=== PATIENT | female | born 1940 | race Caucasian/White ===

== ENCOUNTER 2016-03-21 11:33 | Outpatient (CLI) | payer MEDICARE, OTHER ==
[2015-05-04 10:26] VITALS: BP 158/52
== END 2016-03-21 11:34 ==
LOC: LAB 11:33
PROVIDERS: ATTEND Internal Medicine Cardiovascular Disease
DX: Z51.81 Encounter for therapeutic drug level monitoring (principal); Z79.01 Long term (current) use of anticoagulants; I48.0 Paroxysmal atrial fibrillation
CPT/HCPCS: 36415; 85610

== ENCOUNTER 2016-04-04 09:37 | Outpatient (CLI) | payer MEDICARE, OTHER ==
[2015-05-04 10:26] VITALS: BP 158/52
== END 2016-04-04 09:47 ==
LOC: LAB 09:37
PROVIDERS: ATTEND Internal Medicine Cardiovascular Disease
DX: Z51.81 Encounter for therapeutic drug level monitoring (principal); Z79.01 Long term (current) use of anticoagulants; I48.0 Paroxysmal atrial fibrillation
CPT/HCPCS: 36415; 85610

== ENCOUNTER 2016-04-18 11:33 | Outpatient (CLI) | payer MEDICARE, OTHER ==
[2015-05-04 10:26] VITALS: BP 158/52
== END 2016-04-18 11:34 ==
LOC: LAB 11:33
PROVIDERS: ATTEND Internal Medicine Cardiovascular Disease
DX: I48.0 Paroxysmal atrial fibrillation (principal)
CPT/HCPCS: 36415; 85610

== ENCOUNTER 2016-05-02 12:45 | Outpatient (CLI) | payer MEDICARE, OTHER ==
[2015-05-04 10:26] VITALS: BP 158/52
== END 2016-05-02 12:46 ==
LOC: LAB 12:45
PROVIDERS: ATTEND Internal Medicine Cardiovascular Disease
DX: I48.0 Paroxysmal atrial fibrillation (principal)
CPT/HCPCS: 36415; 85610

== ENCOUNTER 2016-05-10 09:18 | Outpatient (CLI) | payer MEDICARE, OTHER ==
[2015-05-04 10:26] VITALS: BP 158/52
== END 2016-05-10 09:20 ==
LOC: LAB 09:18
PROVIDERS: ATTEND Internal Medicine Cardiovascular Disease
DX: Z51.81 Encounter for therapeutic drug level monitoring (principal); Z79.01 Long term (current) use of anticoagulants; I48.0 Paroxysmal atrial fibrillation
CPT/HCPCS: 36415; 85610

== ENCOUNTER 2016-05-24 14:10 | Outpatient (CLI) | payer MEDICARE, OTHER ==
[2015-05-04 10:26] VITALS: BP 158/52
== END 2016-05-24 14:11 ==
LOC: LAB 14:10
PROVIDERS: ATTEND Internal Medicine Cardiovascular Disease
DX: Z51.81 Encounter for therapeutic drug level monitoring (principal); Z79.01 Long term (current) use of anticoagulants; I48.0 Paroxysmal atrial fibrillation; R07.2 Precordial pain
CPT/HCPCS: 36415; 85610

== ENCOUNTER 2016-06-14 13:25 | Outpatient (CLI) | payer MEDICARE, OTHER ==
[2015-05-04 10:26] VITALS: BP 158/52
== END 2016-06-14 13:26 ==
LOC: LAB 13:25
PROVIDERS: ATTEND Internal Medicine Cardiovascular Disease
DX: Z51.81 Encounter for therapeutic drug level monitoring (principal); Z79.01 Long term (current) use of anticoagulants; I48.0 Paroxysmal atrial fibrillation
CPT/HCPCS: 36415; 85610

== ENCOUNTER 2016-07-03 11:50 | Outpatient (CLI) | payer MEDICARE, OTHER ==
[2015-05-04 10:26] VITALS: BP 158/52
== END 2016-07-03 11:52 ==
LOC: LAB 11:50
PROVIDERS: ATTEND Internal Medicine Cardiovascular Disease
DX: Z51.81 Encounter for therapeutic drug level monitoring (principal); Z79.01 Long term (current) use of anticoagulants; I48.0 Paroxysmal atrial fibrillation
CPT/HCPCS: 36415; 85610

== ENCOUNTER 2016-07-05 11:28 | Emergency (ER) | payer MEDICARE, OTHER ==
[2016-07-05] MEDS ORDERED: KETOROLAC TROMETHAMINE 60 MG/2 ML VIAL ONE (12:58)
[2016-07-05] MEDS ORDERED: FLUCONAZOLE 150 MG TABLET PO ONE (13:00)
[2016-07-05] MEDS: KETOROLAC TROMETHAMINE 60 MG/2 ML VIAL IM ONE (13:25)
[2016-07-05] MEDS: FLUCONAZOLE 150 MG TABLET PO SCH (13:25)
--- NOTE | 2016-07-05 14:04 | ED Physician Documentation ---
Fall - HISTORIAN Historian: patient - HPI Stated Complaint: groin pain r/t fall Chief Complaint: Fall Additional Information: fell yesterday, hurts to ambulate, spots of blood on underwear anteriorly Onset: just prior to arrival Where: home Context: tripped r: moderate Associated Symptoms:: no loss of consciousness Location of Pain/Injury: other (inguinal area) Injury to Right Extremity: none Injury to Left Extremity: none Front/Back of Body, Lg (Frio): 1 - pain Further Comments: no - ROS CONST: no problems MS/SKIN/LYMPH: other (inguinal/pelvic pain) EYES/ENT: none CVS/RESP: none GI/: denies: problems urinating, nausea, vomiting - PAST HX Past History: diabetes Type 2, other (htn) Immunizations: referred to PCP Allergies/Adverse Reactions: Allergies Allergy/AdvReac Type Severity Reaction Status Date / Time amoxicillin [Amoxicillin] Allergy Unknown Hives Verified 07/05/16 11:55 cephalexin monohydrate Allergy Unknown unknown Verified 07/05/16 11:55 [From Keflex] Home Medications: Ambulatory Orders Medication Instructions Recorded Allopurinol [Zyloprim] 300 mg PO DAILY 11/10/12 Cyclobenzaprine HCl [Flexeril] 10 mg PO DAILY 11/10/12 Gabapentin [Gabapentin] 300 mg PO DAILY 11/10/12 Glimepiride [Amaryl] 4 mg PO DAILY 11/10/12 Hydrochlorothiazide [Hydrodiuril] 25 mg PO DAILY 11/10/12 Hydrocodone/Acetaminophen 1 tab PO QID 11/10/12 [Hydrocodon-Acetaminophen 5-325] Lisinopril [Prinivil] 20 mg PO DAILY 11/10/12 Metformin HCl [GLUCOPHAGE] 1,000 mg PO DAILY 11/10/12 Metoprolol Tartrate [Lopressor] 50 mg PO DAILY 11/10/12 Omeprazole [Omeprazole] 20 mg PO DAILY 11/10/12 Simvastatin [Simvastatin] 40 mg PO DAILY 11/10/12 Meclizine HCl [Antivert] 12.5 mg PO QID #60 tablet 04/19/14 Acyclovir [Zovirax] 800 mg PO QID #56 tablet 05/04/15 - SOCIAL HX Smoking History: non-smoker Alcohol Use: none Drug Use: none - FAMILY HX Family History: no significant history - VITAL SIGNS Vital Signs: Vital Signs Temp Pulse Resp BP Pulse Ox 98.5 F 83 18 162/65 94 07/05/16 11:47 07/05/16 11:47 07/05/16 11:47 07/05/16 11:47 07/05/16 11:47 - REVIEWED ASSESSMENTS Nursing Assessment Reviewed: Yes Vitals Reviewed: Yes Progress - Results/Orders Results/Orders: ct abdomen/pelvis ordered - Progress Progress: pt. given diflucan 200 mg p.o. and toradol 60 mg im in er Critical Care Note - Critical Care Note Total Time (mins): 0 ED Results Lab/Radiology - Lab Results Lab Results: none ordered - Radiology Radiology Impressions: ct abdpmen/pelvis neg - Orders Orders: ED Orders Category Date Time Status CT ABD & PELVIS W/O CON Routine Exams 07/05/[address] ABD & PELVIS W/O CON Stat Exams 07/05/16 Ordered Fluconazole [Diflucan] Med 07/05/16 13:00 Ordered 200 mg PO DAILY Fluconazole [Diflucan] Med 07/05/16 13:00 Discontinued 300 mg PO .STK-MED ONE Ketorolac Tromethamine [Toradol] Med 07/05/16 12:58 Discontinued 60 mg .ROUTE .STK-MED ONE Ketorolac Tromethamine [Toradol] Med 07/05/16 12:45 Discontinued 60 mg IM NOW ONE Fall Physical Exam - Physical Exam General Appearance: alert, moderate distress Head: non-tender, no swelling, no obvious injury Neck: non-tender, painless ROM, trachea midline Eye: CLAIRE, EOMI, lids & conjunct. nml ENT: nml external inspection, no dental injury, no oral injury, airway nml Resp/CVS: chest non-tender, no ecchymosis, breath sounds nml, no resp. distress , heart sounds nml Abdomen: soft, no organomegaly, normal bowel sounds, no abdominal bruit, no distension, non-tender Neuro: oriented x3, CN's nml as tested, sensation nml, motor nml, mood/affect nml, automotive technology instructor nml, reflexes nml, automotive technology instructor symmetrical Skin: color nml, no rash Back: normal inspection, no CVA tenderness, no vertebral tenderness Extremities: atraumatic, pelvis stable, bony point-tenderness (hips), painful weight bearing (mild) Joint: joints nml, nml ROM, Nml gait/weight bearing. No: click/crepitus - [place]aud Coma Score Eyes Open: Spontaneous Speech: Oriented Motor: Obeys Commands Discharge Clincal Impression: Tinea corporis Referrals: Coby Watkins MD [Primary Care Provider] - 2 Days Home Medications: Ambulatory Orders Allopurinol [Zyloprim] 300 mg PO DAILY 11/10/12 Cyclobenzaprine HCl [Flexeril] 10 mg PO DAILY 11/10/12 Gabapentin [Gabapentin] 300 mg PO DAILY 11/10/12 Glimepiride [Amaryl] 4 mg PO DAILY 11/10/12 Hydrochlorothiazide [Hydrodiuril] 25 mg PO DAILY 11/10/12 Hydrocodone/Acetaminophen [Hydrocodon-Acetaminophen 5-325] 1 tab PO QID Lisinopril [Prinivil] 20 mg PO DAILY 11/10/12 Metformin HCl [GLUCOPHAGE] 1,000 mg PO DAILY 11/10/12 Metoprolol Tartrate [Lopressor] 50 mg PO DAILY 11/10/12 Omeprazole [Omeprazole] 20 mg PO DAILY 11/10/12 Simvastatin [Simvastatin] 40 mg PO DAILY 11/10/12 Meclizine HCl [Antivert] 12.5 mg PO QID #60 tablet 04/19/14 Acyclovir [Zovirax] 800 mg PO QID #56 tablet 05/04/15 Comments: Discharged with scripts for Nystatin powder and Diflucan Condition: Stable Disposition: 01 HOME, SELF-CARE Decision to Admit: NO Decision Time: 14:00
[2016-07-05 14:21] VITALS: BP 150/70
--- NOTE | 2016-07-05 23:44 | Diagnostic Imaging Report ---
MAIK ARENAS [facility] [address] [facility] [address] [place], [place]. [address] Report Submission Date: Jul 05, 2016 1:25:55 PM CDT Patient Study Name: JOEL MARTINEZ Date: Jul 05, 2016 12:58:03 PM CDT Modality Type: CT\SR Gender: F Description: CT ABD & PELVIS W/O CO : 38 Institution: [facility] Physician: MAIK ARENAS CT abdomen and pelvis without contrast Date of study: 05 July 2016 CLINICAL HISTORY: CT A/P W/O, ABD/PELVIC PAIN AFTER FALL (Hx) / ABD/PELVIC PAIN AFTER FALL (DICOM Hx) TECHNIQUE: 5 mm contiguous axial images of the abdomen and pelvis non contrast. FINDINGS: The lung bases are clear. There is no liver or spleen lesion. No adrenal or pancreas lesion is seen. Aortic iliac and mesenteric vascular calcification is present. The gallbladder has been removed. The kidneys are unremarkable. Lumbar spondylosis is present. There is diverticulosis of the colon. A hernia in the abdominal wall where the left side of the pelvis contains only fat. The bladder is unremarkable. No ascites or hemoperitoneum is seen. There is a fracture of L5 has been treated with vertebroplasty. The bladder and uterus appear normal for age The pelvic ring appears intact. No hip fractures identified. IMPRESSION: No acute abdomen and pelvis pathology Old fracture of L5 treated with vertebroplasty Cholecystectomy Multifocal vascular calcification Diverticulosis Left paramidline hernia overlying the pelvis Electronically signed on Jul 05, 2016 1:25:55 PM CDT by: Mario MISHRA
== END 2016-07-05 14:10 | disposition home or self-care (01) ==
LOC: ED 11:28
DX: B35.4 Tinea corporis (principal)
CPT/HCPCS: 74176; J1885; 96372; 99283

== ENCOUNTER 2016-07-17 12:34 | Outpatient (CLI) | payer MEDICARE, OTHER | END 2016-07-17 12:35 | LOC: LAB 12:34 | PROVIDERS: ATTEND Internal Medicine Cardiovascular Disease | DX: Z51.81 Encounter for therapeutic drug level monitoring (principal); Z79.01 Long term (current) use of anticoagulants; I48.0 Paroxysmal atrial fibrillation | CPT/HCPCS: 36415; 85610 ==

== ENCOUNTER 2016-07-18 11:00 | Outpatient (CLI) | payer MEDICARE, OTHER | END 2016-07-18 11:02 | LOC: LAB 11:00 | PROVIDERS: ATTEND Internal Medicine Cardiovascular Disease | DX: Z51.81 Encounter for therapeutic drug level monitoring (principal); Z79.01 Long term (current) use of anticoagulants; I48.0 Paroxysmal atrial fibrillation | CPT/HCPCS: 36415; 85610 ==

== ENCOUNTER 2016-07-27 10:34 | Outpatient (CLI) | payer MEDICARE, OTHER | END 2016-07-27 10:35 | LOC: LAB 10:34 | PROVIDERS: ATTEND Internal Medicine Cardiovascular Disease | DX: I48.0 Paroxysmal atrial fibrillation (principal) ==

== ENCOUNTER 2016-08-02 09:46 | Outpatient (CLI) | payer MEDICARE, OTHER | END 2016-08-02 09:47 | LOC: LAB 09:46 | PROVIDERS: ATTEND Internal Medicine Cardiovascular Disease | DX: I48.0 Paroxysmal atrial fibrillation (principal) | CPT/HCPCS: 36415; 85610 ==

== ENCOUNTER 2016-08-07 11:43 | Outpatient (CLI) | payer MEDICARE, OTHER | END 2016-08-07 11:44 | LOC: LAB 11:43 | PROVIDERS: ATTEND Internal Medicine Cardiovascular Disease | DX: I48.0 Paroxysmal atrial fibrillation (principal) | CPT/HCPCS: 36415; 85610 ==

== ENCOUNTER 2016-08-15 09:47 | Outpatient (CLI) | payer MEDICARE, OTHER | END 2016-08-15 09:50 | LOC: LAB 09:47 | PROVIDERS: ATTEND Internal Medicine Cardiovascular Disease | DX: I48.0 Paroxysmal atrial fibrillation (principal) ==

== ENCOUNTER 2016-08-28 10:54 | Outpatient (CLI) | payer MEDICARE, OTHER | END 2016-08-28 12:39 | LOC: LAB 10:54 | PROVIDERS: ATTEND Internal Medicine Cardiovascular Disease | DX: I48.0 Paroxysmal atrial fibrillation (principal) | CPT/HCPCS: 36415; 85610 ==

== ENCOUNTER 2016-09-12 09:23 | Outpatient (CLI) | payer MEDICARE, OTHER | END 2016-09-12 09:24 | LOC: LAB 09:23 | PROVIDERS: ATTEND Internal Medicine Cardiovascular Disease | DX: I48.0 Paroxysmal atrial fibrillation (principal) | CPT/HCPCS: 36415; 85610 ==

== ENCOUNTER 2016-09-19 10:22 | Outpatient (CLI) | payer MEDICARE, OTHER | END 2016-09-19 10:23 | LOC: LAB 10:22 | PROVIDERS: ATTEND Internal Medicine Cardiovascular Disease | DX: I48.0 Paroxysmal atrial fibrillation (principal) | CPT/HCPCS: 36415; 85610 ==

== ENCOUNTER 2016-10-02 10:20 | Outpatient (CLI) | payer MEDICARE, OTHER | END 2016-10-02 10:21 | LOC: LAB 10:20 | PROVIDERS: ATTEND Internal Medicine Cardiovascular Disease | DX: I48.0 Paroxysmal atrial fibrillation (principal) | CPT/HCPCS: 36415; 85610 ==

== ENCOUNTER 2016-10-09 10:44 | Outpatient (CLI) | payer MEDICARE, OTHER | END 2016-10-09 10:45 | LOC: LAB 10:44 | PROVIDERS: ATTEND Internal Medicine Cardiovascular Disease | DX: I48.0 Paroxysmal atrial fibrillation (principal) | CPT/HCPCS: 36415; 85610 ==

== ENCOUNTER 2016-10-18 10:26 | Outpatient (CLI) | payer MEDICARE, OTHER | END 2016-10-18 10:27 | LOC: LAB 10:26 | PROVIDERS: ATTEND Internal Medicine Cardiovascular Disease | DX: I48.0 Paroxysmal atrial fibrillation (principal) | CPT/HCPCS: 36415; 85610 ==

== ENCOUNTER 2016-10-30 15:47 | Outpatient (CLI) | payer MEDICARE, OTHER | END 2016-10-30 15:50 | LOC: LAB 15:47 | PROVIDERS: ATTEND Internal Medicine Cardiovascular Disease | DX: I48.0 Paroxysmal atrial fibrillation (principal) | CPT/HCPCS: 36415; 85610 ==

== ENCOUNTER 2016-11-02 08:55 | Outpatient (CLI) | payer MEDICARE, OTHER | END 2016-11-02 08:56 | LOC: LAB 08:55 | PROVIDERS: ATTEND Internal Medicine Cardiovascular Disease | DX: I48.0 Paroxysmal atrial fibrillation (principal) | CPT/HCPCS: 36415; 85610 ==

== ENCOUNTER 2016-11-06 10:48 | Outpatient (CLI) | payer MEDICARE, OTHER | END 2016-11-06 10:50 | LOC: LAB 10:48 | PROVIDERS: ATTEND Internal Medicine Cardiovascular Disease | DX: I48.0 Paroxysmal atrial fibrillation (principal) | CPT/HCPCS: 36415; 85610 ==

== ENCOUNTER 2016-11-09 09:35 | Outpatient (CLI) | payer MEDICARE, OTHER | END 2016-11-09 09:36 | LOC: LAB 09:35 | PROVIDERS: ATTEND Internal Medicine Cardiovascular Disease | DX: I48.0 Paroxysmal atrial fibrillation (principal) | CPT/HCPCS: 36415; 85610 ==

== ENCOUNTER 2016-11-13 10:34 | Outpatient (CLI) | payer MEDICARE, OTHER | END 2016-11-13 10:35 | LOC: LAB 10:34 | PROVIDERS: ATTEND Internal Medicine Cardiovascular Disease | DX: I48.0 Paroxysmal atrial fibrillation (principal) | CPT/HCPCS: 36415; 85610 ==

== ENCOUNTER 2016-11-20 11:27 | Outpatient (CLI) | payer MEDICARE, OTHER | END 2016-11-20 11:30 | LOC: LAB 11:27 | PROVIDERS: ATTEND Internal Medicine Cardiovascular Disease | DX: I48.0 Paroxysmal atrial fibrillation (principal) | CPT/HCPCS: 36415; 85610 ==

== ENCOUNTER 2016-11-27 10:31 | Outpatient (CLI) | payer MEDICARE, OTHER | END 2016-11-27 10:32 | LOC: LAB 10:31 | PROVIDERS: ATTEND Internal Medicine Cardiovascular Disease | DX: I48.0 Paroxysmal atrial fibrillation (principal) | CPT/HCPCS: 36415; 85610 ==

== ENCOUNTER 2016-12-11 10:22 | Outpatient (CLI) | payer MEDICARE, OTHER | END 2016-12-11 10:23 | LOC: LAB 10:22 | PROVIDERS: ATTEND Internal Medicine Cardiovascular Disease | DX: I48.0 Paroxysmal atrial fibrillation (principal) | CPT/HCPCS: 36415; 85610 ==

== ENCOUNTER 2016-12-21 10:37 | Outpatient (CLI) | payer MEDICARE, OTHER | END 2016-12-21 10:40 | LOC: LAB 10:37 | PROVIDERS: ATTEND Internal Medicine Cardiovascular Disease | DX: I48.0 Paroxysmal atrial fibrillation (principal) | CPT/HCPCS: 36415; 85610 ==

== ENCOUNTER 2016-12-25 10:32 | Outpatient (CLI) | payer MEDICARE, OTHER | END 2016-12-25 10:33 | LOC: LAB 10:32 | PROVIDERS: ATTEND Internal Medicine Cardiovascular Disease | DX: I48.0 Paroxysmal atrial fibrillation (principal) | CPT/HCPCS: 36415; 85610 ==

== ENCOUNTER 2017-01-02 11:43 | Outpatient (CLI) | payer MEDICARE, OTHER | END 2017-01-02 11:50 | LOC: LAB 11:43 | PROVIDERS: ATTEND Internal Medicine Cardiovascular Disease | DX: I48.0 Paroxysmal atrial fibrillation (principal) | CPT/HCPCS: 36415; 85610 ==

== ENCOUNTER 2017-01-09 13:32 | Outpatient (CLI) | payer MEDICARE, OTHER | END 2017-01-09 13:33 | LOC: LAB 13:32 | PROVIDERS: ATTEND Internal Medicine Cardiovascular Disease | DX: I48.0 Paroxysmal atrial fibrillation (principal) | CPT/HCPCS: 36415; 85610 ==

== ENCOUNTER 2017-01-23 10:26 | Outpatient (CLI) | payer MEDICARE, OTHER | END 2017-01-23 11:26 | LOC: LAB 10:26 | PROVIDERS: ATTEND Internal Medicine Cardiovascular Disease | DX: I48.0 Paroxysmal atrial fibrillation (principal) | CPT/HCPCS: 36415; 85610 ==

== ENCOUNTER 2017-02-04 10:12 | Outpatient (CLI) | payer MEDICARE, OTHER | END 2017-02-04 10:14 | LOC: LAB 10:12 | PROVIDERS: ATTEND Internal Medicine Cardiovascular Disease | DX: I48.0 Paroxysmal atrial fibrillation (principal) | CPT/HCPCS: 36415; 85610 ==

== ENCOUNTER 2017-02-28 11:31 | Outpatient (CLI) | payer MEDICARE, OTHER | END 2017-02-28 11:45 | LOC: LAB 11:31 | PROVIDERS: ATTEND Internal Medicine Cardiovascular Disease | DX: Z79.01 Long term (current) use of anticoagulants (principal) | CPT/HCPCS: 36415; 85610 ==

== ENCOUNTER 2017-03-19 09:08 | Outpatient (CLI) | payer MEDICARE, OTHER | END 2017-03-19 09:10 | LOC: LAB 09:08 | PROVIDERS: ATTEND Internal Medicine Cardiovascular Disease | DX: Z79.01 Long term (current) use of anticoagulants (principal) | CPT/HCPCS: 36415; 85610 ==

== ENCOUNTER 2017-03-26 10:08 | Outpatient (CLI) | payer MEDICARE, OTHER | END 2017-03-26 10:10 | LOC: LAB 10:08 | PROVIDERS: ATTEND Internal Medicine Cardiovascular Disease | DX: Z79.01 Long term (current) use of anticoagulants (principal) | CPT/HCPCS: 36415; 85610 ==

== ENCOUNTER 2017-04-02 10:42 | Outpatient (CLI) | payer MEDICARE, OTHER | END 2017-04-02 10:43 | LOC: LAB 10:42 | PROVIDERS: ATTEND Hospitalist | DX: Z79.01 Long term (current) use of anticoagulants (principal) | CPT/HCPCS: 36415; 85610 ==

== ENCOUNTER 2017-04-07 20:28 | Emergency (ER) | payer MEDICARE, OTHER ==
--- NOTE | 2017-04-07 20:52 | ED Physician Documentation ---
General Adult - HISTORIAN Historian: patient, other (family member) - HPI Stated Complaint: fall Chief Complaint: General Adult Onset: minutes Timing: still present Severity: moderate Further Comments: yes (Pt is a 76 yo female who this evening shortly prior to arrival and stuck the back of her head on a table. Pt did not have LOC, but she and her daughter say that she struck her head hard. Pt also fell in her yard yesteday and went to her knees. She did not strike her head on that occasion. Pt has been feeling a little weak.) - ROS CONST: weakness EYES/ENT: none CVS/RESP: none GI/: none MS/SKIN/LYMPH: none NEURO/PSYCH: headache (slight) - PAST HX Past History: other (Afib, Gout, HTN, HLD, DM) Surgeries/Procedures: cholecystectomy, other (ortho surgery, hernia) Allergies/Adverse Reactions: Allergies Allergy/AdvReac Type Severity Reaction Status Date / Time amoxicillin [Amoxicillin] Allergy Unknown Hives Verified 04/07/17 20:48 cephalexin monohydrate Allergy Unknown unknown Verified 04/07/17 20:48 [From Keflex] Home Medications: Ambulatory Orders Medication Instructions Recorded Allopurinol [Zyloprim] 300 mg PO DAILY 11/10/12 Cyclobenzaprine HCl [Flexeril] 10 mg PO DAILY 11/10/12 Gabapentin [Gabapentin] 300 mg PO DAILY 11/10/12 Hydrocodone/Acetaminophen 1 tab PO QID 11/10/12 [Hydrocodon-Acetaminophen 5-325] Metformin HCl [GLUCOPHAGE] 1,000 mg PO BID 11/10/12 Metoprolol Tartrate [Lopressor] 50 mg PO BID 11/10/12 Omeprazole [Omeprazole] 20 mg PO DAILY 11/10/12 Simvastatin [Simvastatin] 20 mg PO DAILY 11/10/12 Aspirin [Elmer] 81 mg PO DAILY 04/07/17 Gabapentin [Neurontin] 600 mg PO HS 04/07/17 Insulin Aspart [Novolog Flexpen] 10 unit SQ TID 04/07/17 Insulin Detemir [Levemir Flex-Pen] 20 unit SQ HS 04/07/17 Ipratropium [place] [Atrovent] 15 ml NS QDAY PRN 04/07/17 Losartan Potassium [Cozaar] 100 mg PO DAILY 04/07/17 - SOCIAL HX Smoking History: non-smoker - FAMILY HX Family History: No - VITAL SIGNS Vital Signs: Vital Signs Temp Pulse Resp BP Pulse Ox 150/70 07/05/16 14:19 - REVIEWED ASSESSMENTS Nursing Assessment Reviewed: Yes Vitals Reviewed: Yes Progress - Progress Progress: CT head: Mild atrophy. No bleeding or acute intracranial abnormalities. NS 500 cc IVF improved. General Adult Physical Exam - PHYSICAL EXAM GENERAL APPEARANCE: mild distress EENT: eye inspection normal, dry mucous membranes NECK: normal inspection, supple RESPIRATORY: no resp distress, chest non-tender, breath sounds normal CVS: reg rate & rhythm, heart sounds normal ABDOMEN: soft, no organomegaly, normal bowel sounds BACK: normal inspection, no CVA tenderness SKIN: warm/dry, normal color EXTREMITIES: non-tender, normal range of motion, no evidence of injury NEURO: oriented X3, motor nml, sensation nml Discharge Clincal Impression: Minor head trauma Fall Qualifiers: Encounter type: initial encounter Qualified Code(s): W19.XXXA - Unspecified fall, initial encounter Referrals: Adri Decker PRN [Primary Care Provider] - Condition: Stable Disposition: 01 HOME, SELF-CARE Decision to Admit: NO Decision Time: 23:02
[2017-04-07] MEDS: 0.9 % SODIUM CHLORIDE 1,000 ML IV ONE (22:05)
[2017-04-07 22:18] LABS: BASOPHILS % 1.2 (0.0-1.5); EOSINOPHILS % 0.6 % (0.0-6.8); MEAN CORPUSCULAR HEMOGLOBIN 36.1 pg (28.0-34.0); MEAN CORPUSCULAR VOLUME 110.5 fl (80.0-100.0); MONOCYTES % 7.2 % (0.0-11.0); NEUTROPHILS # 5.6 # k/uL (1.4-7.7)
[2017-04-07 22:37] LABS: eGFR (African) > 60; eGFR (Non-African) > 60
[2017-04-07 23:27] VITALS: BP 144/58
--- NOTE | 2017-04-08 06:49 | Diagnostic Imaging Report ---
AFSANEH GUPTA [facility] [address] [facility] [address] [place] [address]. [id number] Report Submission Date: Apr 07, 2017 9:39:51 PM POWER TONG OPERATOR Patient Study Name: JOEL MARTINEZ Date: Apr 07, 2017 9:18:07 PM POWER TONG OPERATOR Modality Type: CT\SR Gender: F Description: CT BRAIN W/O CONTRAST : 38 Institution: [facility] Physician: AFSANEH GUPTA CT brain without IV contrast Clinical history: History of fall , an injury of the back of the head . Radiation dose DLP 790 No visible skull fractures. No evidence of intracranial bleed, acute infarct, midline shift or hydrocephalus. No visible tumor mass. Mild degree of atrophy is noted with small vessel disease. Impression: Mild atrophy No bleeding or acute intracranial abnormalities Electronically signed on Apr 07, 2017 9:39:51 PM POWER TONG OPERATOR by: Michael MISHRA
== END 2017-04-07 23:10 | disposition home or self-care (01) ==
LOC: ED 20:28
DX: S09.8XXA Other specified injuries of head, initial encounter (principal); W19.XXXA Unspecified fall, initial encounter
CPT/HCPCS: 70450; 80053; 83880; 85025; 85610; 99282; J7030; S1016

== ENCOUNTER 2017-04-10 13:43 | Outpatient (CLI) | payer MEDICARE, OTHER | END 2017-04-10 13:44 | LOC: LAB 13:43 | PROVIDERS: ATTEND Internal Medicine Cardiovascular Disease | DX: Z79.01 Long term (current) use of anticoagulants (principal) | CPT/HCPCS: 36415; 85610 ==

== ENCOUNTER 2017-04-17 12:12 | Outpatient (CLI) | payer MEDICARE, OTHER | END 2017-04-17 12:13 | LOC: LAB 12:12 | PROVIDERS: ATTEND Internal Medicine Cardiovascular Disease | DX: Z79.01 Long term (current) use of anticoagulants (principal) | CPT/HCPCS: 36415; 85610 ==

== ENCOUNTER 2017-04-19 11:15 | Outpatient (CLI) | payer MEDICARE, OTHER | END 2017-04-19 11:17 | LOC: LAB 11:15 | PROVIDERS: ATTEND Internal Medicine Cardiovascular Disease | DX: Z79.01 Long term (current) use of anticoagulants (principal) | CPT/HCPCS: 36415; 85610 ==

== ENCOUNTER 2017-04-23 11:55 | Outpatient (CLI) | payer MEDICARE, OTHER | END 2017-04-23 11:56 | LOC: LAB 11:55 | PROVIDERS: ATTEND Internal Medicine Cardiovascular Disease | DX: Z79.01 Long term (current) use of anticoagulants (principal) | CPT/HCPCS: 36415; 85610 ==

== ENCOUNTER 2017-04-26 10:38 | Outpatient (CLI) | payer MEDICARE, OTHER | END 2017-04-26 10:40 | LOC: LAB 10:38 | PROVIDERS: ATTEND Internal Medicine Cardiovascular Disease | DX: Z79.01 Long term (current) use of anticoagulants (principal) | CPT/HCPCS: 36415; 85610 ==

== ENCOUNTER 2017-05-01 11:03 | Outpatient (CLI) | payer MEDICARE, OTHER | END 2017-05-01 11:04 | LOC: LAB 11:03 | PROVIDERS: ATTEND Internal Medicine Cardiovascular Disease | DX: Z79.01 Long term (current) use of anticoagulants (principal) | CPT/HCPCS: 36415; 85610 ==

== ENCOUNTER 2017-05-15 08:20 | Outpatient (CLI) | payer MEDICARE, OTHER | END 2017-05-15 09:29 | LOC: LAB 08:20 | PROVIDERS: ATTEND Internal Medicine Cardiovascular Disease | DX: Z79.01 Long term (current) use of anticoagulants (principal) | CPT/HCPCS: 36415; 85610 ==

== ENCOUNTER 2017-05-28 12:21 | Outpatient (CLI) | payer MEDICARE, OTHER | END 2017-05-28 12:22 | LOC: LAB 12:21 | PROVIDERS: ATTEND Internal Medicine Cardiovascular Disease | DX: Z79.01 Long term (current) use of anticoagulants (principal) | CPT/HCPCS: 36415; 85610 ==

== ENCOUNTER 2017-06-11 11:29 | Outpatient (CLI) | payer MEDICARE, OTHER | END 2017-06-11 11:30 | LOC: LAB 11:29 | PROVIDERS: ATTEND Internal Medicine Cardiovascular Disease | DX: Z79.01 Long term (current) use of anticoagulants (principal) | CPT/HCPCS: 36415; 85610 ==

== ENCOUNTER 2017-06-27 11:55 | Outpatient (CLI) | payer MEDICARE, OTHER | END 2017-06-27 12:00 | LOC: LAB 11:55 | PROVIDERS: ATTEND Internal Medicine Cardiovascular Disease | DX: Z79.01 Long term (current) use of anticoagulants (principal) | CPT/HCPCS: 36415; 85610 ==

== ENCOUNTER 2017-07-04 10:17 | Outpatient (CLI) | payer MEDICARE, OTHER | END 2017-07-04 10:20 | LOC: LAB 10:17 | PROVIDERS: ATTEND Internal Medicine Cardiovascular Disease | DX: Z79.01 Long term (current) use of anticoagulants (principal) | CPT/HCPCS: 36415; 85610 ==

== ENCOUNTER 2017-07-19 11:58 | Outpatient (CLI) | payer MEDICARE, OTHER | END 2017-07-19 12:00 | LOC: LAB 11:58 | PROVIDERS: ATTEND Internal Medicine Cardiovascular Disease | DX: Z79.01 Long term (current) use of anticoagulants (principal) | CPT/HCPCS: 36415; 85610 ==

== ENCOUNTER 2017-08-16 10:26 | Outpatient (CLI) | payer MEDICARE, OTHER | END 2017-08-16 10:28 | LOC: LAB 10:26 | PROVIDERS: ATTEND Internal Medicine Cardiovascular Disease | DX: Z79.01 Long term (current) use of anticoagulants (principal) | CPT/HCPCS: 36415; 85610 ==

== ENCOUNTER 2017-09-13 10:56 | Outpatient (CLI) | payer MEDICARE, OTHER | END 2017-09-13 10:58 | LOC: LAB 10:56 | PROVIDERS: ATTEND Internal Medicine Cardiovascular Disease | DX: Z79.01 Long term (current) use of anticoagulants (principal) | CPT/HCPCS: 36415; 85610 ==

== ENCOUNTER 2017-09-16 13:37 | Outpatient (CLI) | payer MEDICARE, OTHER | END 2017-09-16 13:40 | LOC: LAB 13:37 | PROVIDERS: ATTEND Internal Medicine Cardiovascular Disease | DX: Z79.01 Long term (current) use of anticoagulants (principal) | CPT/HCPCS: 36415; 85610 ==

== ENCOUNTER 2017-09-23 10:18 | Outpatient (CLI) | payer MEDICARE, OTHER | END 2017-09-23 10:47 | LOC: LAB 10:18 | PROVIDERS: ATTEND Internal Medicine Cardiovascular Disease | DX: Z79.01 Long term (current) use of anticoagulants (principal) | CPT/HCPCS: 36415; 85610 ==

== ENCOUNTER 2017-10-07 11:20 | Outpatient (CLI) | payer MEDICARE, OTHER | END 2017-10-07 11:22 | LOC: LAB 11:20 | PROVIDERS: ATTEND Internal Medicine Cardiovascular Disease | DX: Z79.01 Long term (current) use of anticoagulants (principal) | CPT/HCPCS: 36415; 85610 ==

== ENCOUNTER 2017-10-21 12:05 | Outpatient (CLI) | payer MEDICARE, OTHER | END 2017-10-21 12:06 | LOC: LAB 12:05 | PROVIDERS: ATTEND Internal Medicine Cardiovascular Disease | DX: Z79.01 Long term (current) use of anticoagulants (principal) | CPT/HCPCS: 36415; 85610 ==

== ENCOUNTER 2017-11-04 09:36 | Outpatient (CLI) | payer MEDICARE, OTHER | END 2017-11-04 09:38 | LOC: LAB 09:36 | PROVIDERS: ATTEND Internal Medicine Cardiovascular Disease | DX: Z79.01 Long term (current) use of anticoagulants (principal) | CPT/HCPCS: 36415; 85610 ==

== ENCOUNTER 2017-11-19 10:52 | Outpatient (CLI) | payer MEDICARE, OTHER ==
[2017-11-19 11:43] LABS: eGFR (Non-African) > 60
== END 2017-11-19 10:53 ==
LOC: LAB 10:52
PROVIDERS: ATTEND Internal Medicine Cardiovascular Disease
DX: E11.9 Type 2 diabetes mellitus without complications (principal); Z79.01 Long term (current) use of anticoagulants
CPT/HCPCS: 36415; 80053; 83036; 85610

== ENCOUNTER 2017-11-25 09:05 | Outpatient (CLI) | payer MEDICARE, OTHER | END 2017-11-25 09:10 | LOC: LAB 09:05 | PROVIDERS: ATTEND Internal Medicine Cardiovascular Disease | DX: Z79.01 Long term (current) use of anticoagulants (principal) | CPT/HCPCS: 36415; 85610 ==

== ENCOUNTER 2017-11-29 12:42 | Outpatient (CLI) | payer MEDICARE, OTHER | END 2017-11-29 12:43 | LOC: LAB 12:42 | PROVIDERS: ATTEND Internal Medicine Cardiovascular Disease | DX: Z79.01 Long term (current) use of anticoagulants (principal) | CPT/HCPCS: 36415; 85610 ==

== ENCOUNTER 2017-12-05 10:02 | Outpatient (CLI) | payer MEDICARE, OTHER | END 2017-12-05 10:03 | LOC: LAB 10:02 | PROVIDERS: ATTEND Internal Medicine Cardiovascular Disease | DX: Z79.01 Long term (current) use of anticoagulants (principal) | CPT/HCPCS: 36415; 85610 ==

== ENCOUNTER 2017-12-16 11:17 | Outpatient (CLI) | payer MEDICARE, OTHER | END 2017-12-16 11:19 | LOC: LAB 11:17 | PROVIDERS: ATTEND Internal Medicine Cardiovascular Disease | DX: Z79.01 Long term (current) use of anticoagulants (principal) | CPT/HCPCS: 36415; 85610 ==

== ENCOUNTER 2017-12-23 09:34 | Outpatient (CLI) | payer MEDICARE, OTHER | END 2017-12-23 09:35 | LOC: LAB 09:34 | PROVIDERS: ATTEND Internal Medicine Cardiovascular Disease | DX: Z79.01 Long term (current) use of anticoagulants (principal) | CPT/HCPCS: 36415; 85610 ==

== ENCOUNTER 2018-01-06 10:28 | Outpatient (CLI) | payer MEDICARE, OTHER | END 2018-01-06 10:38 | LOC: LAB 10:28 | PROVIDERS: ATTEND Internal Medicine Cardiovascular Disease | DX: Z79.01 Long term (current) use of anticoagulants (principal) | CPT/HCPCS: 36415; 85610 ==

== ENCOUNTER 2018-01-28 09:09 | Outpatient (CLI) | payer MEDICARE, OTHER ==
--- NOTE | 2018-02-04 11:14 | SHOULDER JOINT INJECT FLOURO ---
SUBJECTIVE: Ms. Bailey presents today with recurrent left shoulder joint pain. She has had a previous shoulder joint injection with good relief. She says the pain is now returning. She is not wanting an Orthopedic visit or shoulder surgery. Her last injection was on August 20. PROCEDURE: Left shoulder joint injection with fluoroscopic guidance. DESCRIPTION OF PROCEDURE: The risks and benefits of the injection were discussed with the patient, including the risks of infection, bleeding, and nerve injury. Furthermore, I discussed the risk of steroid exposure causing hyperglycemia, hypertension, osteoporosis, or increased infectious risks. The patient understood these risks and agreed to proceed. Consent was obtained. The patient was positioned prone on the fluoroscopic procedure table. A sterile prep and drape were applied. The left subacromial bursa was located fluoroscopically just below the acromion and superficial to the head of the humerus. A needle was advanced in the subacromial bursa with an injection of medication. The patient tolerated the procedure well. There were no apparent complications. The stylette was replaced in the needle and the needle was removed from the shoulder joint. The skin was cleaned and a bandage was applied over the injection site. ASSESSMENT: 1. 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 2. Subacromial bursitis. PLAN: Left shoulder joint injection today. FOLLOW UP: Return to clinic if problems develop or worsen. cc: PLACIDO Johnson
== END 2018-01-28 09:10 ==
LOC: OUT 09:09
PROVIDERS: ATTEND Anesthesiology Pain Medicine
DX: M19.012 Primary osteoarthritis, left shoulder (principal); M75.52 Bursitis of left shoulder
CPT/HCPCS: 20610; 77002; J2001; J3301; J3490; Q9966

== ENCOUNTER 2018-02-18 12:36 | Outpatient (CLI) | payer MEDICARE, OTHER | END 2018-02-18 12:38 | LOC: LAB 12:36 | PROVIDERS: ATTEND Internal Medicine Cardiovascular Disease | DX: Z79.01 Long term (current) use of anticoagulants (principal) | CPT/HCPCS: 36415; 85610 ==

== ENCOUNTER 2018-02-25 10:00 | Outpatient (CLI) | payer MEDICARE, OTHER | END 2018-02-25 11:30 | LOC: LAB 10:00 | PROVIDERS: ATTEND Internal Medicine Cardiovascular Disease | DX: Z79.01 Long term (current) use of anticoagulants (principal); Z51.81 Encounter for therapeutic drug level monitoring | CPT/HCPCS: 36415; 85610 ==

== ENCOUNTER 2018-03-05 08:34 | Outpatient (CLI) | payer MEDICARE, OTHER | END 2018-03-05 08:35 | LOC: LAB 08:34 | PROVIDERS: ATTEND Internal Medicine Cardiovascular Disease | DX: Z79.01 Long term (current) use of anticoagulants (principal) | CPT/HCPCS: 36415; 85610 ==

== ENCOUNTER 2018-03-12 07:56 | Outpatient (CLI) | payer MEDICARE, OTHER | END 2018-03-12 07:57 | LOC: LAB 07:56 | PROVIDERS: ATTEND Internal Medicine Cardiovascular Disease | DX: Z79.01 Long term (current) use of anticoagulants (principal); Z51.81 Encounter for therapeutic drug level monitoring | CPT/HCPCS: 36415; 85610 ==

== ENCOUNTER 2018-03-26 10:36 | Outpatient (CLI) | payer MEDICARE, OTHER | END 2018-03-26 10:38 | LOC: LAB 10:36 | PROVIDERS: ATTEND Internal Medicine Cardiovascular Disease | DX: Z79.01 Long term (current) use of anticoagulants (principal) | CPT/HCPCS: 36415; 85610 ==

== ENCOUNTER 2018-04-23 10:46 | Outpatient (CLI) | payer MEDICARE, OTHER | END 2018-04-23 10:48 | LOC: LAB 10:46 | PROVIDERS: ATTEND Internal Medicine Cardiovascular Disease | DX: Z79.01 Long term (current) use of anticoagulants (principal) | CPT/HCPCS: 36415; 85610 ==

== ENCOUNTER 2018-05-11 04:11 | Emergency (ER) | payer MEDICARE, OTHER ==
--- NOTE | 2018-05-11 05:10 | ED Physician Documentation ---
Fall - HISTORIAN Historian: patient - HPI Stated Complaint: fall back pain Chief Complaint: Fall Onset: just prior to arrival Where: home Context: slipped r: mild Associated Symptoms:: no loss of consciousness Location of Pain/Injury: mid back Injury to Right Extremity: none Injury to Left Extremity: none Further Comments: yes (She states she was up to get on the toliet. She states she just fell back and hit her mid back. she has pain with movement and deep breath but she is able to do both. She did not take any OTC meds) - ROS CONST: no problems - PAST HX Past History: diabetes Type 2 Allergies/Adverse Reactions: Allergies Allergy/AdvReac Type Severity Reaction Status Date / Time amoxicillin [Amoxicillin] Allergy Unknown Hives Verified 05/11/18 04:50 cephalexin monohydrate Allergy Unknown unknown Verified 05/11/18 04:50 [From Keflex] Home Medications: Ambulatory Orders Medication Instructions Recorded Allopurinol [Zyloprim] 300 mg PO DAILY 11/10/12 Metformin HCl [GLUCOPHAGE] 1,000 mg PO BID 11/10/12 Metoprolol Tartrate [Lopressor] 50 mg PO BID 11/10/12 Simvastatin 20 mg PO DAILY 11/10/12 Aspirin [Elmer] 81 mg PO DAILY 04/07/17 Insulin Aspart [Novolog Flexpen] 10 unit SQ TID 04/07/17 Insulin Detemir (Nf) [Levemir 20 unit SQ HS 04/07/17 Flex-Pen] Losartan Potassium [Cozaar] 100 mg PO DAILY 04/07/17 Albuterol Sulfate [Proair HFA] 1 puff INH DIRECTED 05/11/18 Calcium Carbonate/Vitamin D3 1 tab PO D 05/11/18 [Calcium 500 mg-Vit D3 600 Unit] Furosemide [Lasix] 20 mg PO D 05/11/18 Glucosamine/D3/Boswellia Johanna 2 tab PO D 05/11/18 [Osteo Bi-Flex Tablet] Ipratropium [place] [Atrovent INH 1 appl INH DIRECTED 05/11/18 Soln] Levothyroxine Sodium [Synthroid] 50 mcg PO D 05/11/18 Warfarin Sodium [Coumadin] 5 mg PO DIRECTED 05/11/18 - SOCIAL HX Smoking History: non-smoker Alcohol Use: none Drug Use: none - FAMILY HX Family History: none - VITAL SIGNS Vital Signs: Vital Signs Temp Pulse Resp BP Pulse Ox 97.7 F 59 L 18 172/68 96 05/11/18 04:12 05/11/18 04:12 05/11/18 04:12 05/11/18 04:12 05/11/18 04:12 - REVIEWED ASSESSMENTS Nursing Assessment Reviewed: Yes Vitals Reviewed: Yes Progress - Progress Progress: 0545: results discussed. Daughter states they have meds at home for pain DG ED Results Lab/Radiology - Radiology Radiology Impressions: Thoracic spine Clinical history pain Technique AP and lateral swimmer's Findings: There is multilevel disc space narrowing and osteophyte formation. Dextroscoliosis is present. There is no fracture or paravertebral mass. The aorta is tortuous and calcified. Electronically signed on May 11, 2018 5:09:27 AM PARTS LISTER by: Mario De La Rosa The chest and left ribs Clinical history pain Technique PA chest and standard views left ribs Findings: The lung alfaro are clear. There is no pneumothorax. Calcified granuloma is present in the left upper lobe.. Borderline cardiomegaly is present. There is aortic arch calcification o Impression: Negative ribs No acute pulmonary disease Electronically signed on May 11, 2018 5:41:46 AM PARTS LISTER by: Mario De La Rosa - Orders Orders: ED Orders Category Date Time Status T SPINE 3 VIEWS [RAD] Stat Exams 05/11/18 Ordered Fall Physical Exam - Physical Exam General Appearance: no acute distress, alert Head: non-tender Neck: non-tender, painless ROM Eye: CLAIRE Resp/CVS: chest non-tender, breath sounds nml, no resp. distress, heart sounds nml Abdomen: soft, normal bowel sounds, no distension Neuro: oriented x3 Skin: color nml Back: normal inspection Joint: joints nml - [place] Coma Score Eyes Open: Spontaneous Speech: Oriented Motor: Obeys Commands Discharge Clincal Impression: Fall Qualifiers: Encounter type: initial encounter Qualified Code(s): W19.XXXA - Unspecified fall, initial encounter Thoracic back pain Qualifiers: Chronicity: acute Back pain laterality: left Qualified Code(s): M54.6 - Pain in thoracic spine Referrals: John Lipscomb MD [Primary Care Provider] - 2 Days Comments: 1. Tylenol or Ibuprofen as directed for pain 2. Rest 3. Deep breathing exercises 4. Follow up with PCP in 2-4 days 5. Return to ER for any concerns Condition: Stable Disposition: 01 HOME, SELF-CARE Decision to Admit: NO Date of Decison to Admit: 05/11/18 Decision Time: 05:46
--- NOTE | 2018-05-11 05:34 | Diagnostic Imaging Report ---
KAL SHEN [facility] [address] [facility] [address] [address] Report Submission Date: May 11, 2018 5:09:27 AM LEARNING SUPPORT AIDE Patient Study Name: JOEL MARTINEZ Date: May 11, 2018 4:50:28 AM LEARNING SUPPORT AIDE Modality Type: DX Gender: F Description: T SPINE 3 VIEWS : 38 Institution: [facility] Physician: KAL SHEN Thoracic spine Clinical history pain Technique AP and lateral swimmer's Findings: There is multilevel disc space narrowing and osteophyte formation. Dextroscoliosis is present. There is no fracture or paravertebral mass. The aorta is tortuous and calcified. Electronically signed on May 11, 2018 5:09:27 AM LEARNING SUPPORT AIDE by: Mario MISHRA
--- NOTE | 2018-05-11 05:44 | Diagnostic Imaging Report ---
KAL SHEN [facility] [address] [facility] [address] [place], [place]. [address] Report Submission Date: May 11, 2018 5:41:46 AM CHARGEBACK SPECIALIST Patient Study Name: JOEL MARTINEZ Date: May 11, 2018 5:18:45 AM CHARGEBACK SPECIALIST Modality Type: DX Gender: F Description: RIBS UNILATERAL W/ PA CHEST : 38 Institution: [facility] Physician: KAL SHEN The chest and left ribs Clinical history pain Technique PA chest and standard views left ribs Findings: The lung alfaro are clear. There is no pneumothorax. Calcified granuloma is present in the left upper lobe.. Borderline cardiomegaly is present. There is aortic arch calcification o Impression: Negative ribs No acute pulmonary disease Electronically signed on May 11, 2018 5:41:46 AM CHARGEBACK SPECIALIST by: Mario MISHRA
[2018-05-11 05:57] VITALS: BP 168/62
== END 2018-05-11 05:52 | disposition home or self-care (01) ==
LOC: ED 04:11
DX: M54.6 Pain in thoracic spine (principal); W01.10XA Fall on same level from slipping, tripping and stumbling with subsequent striking against unspecified object, initial encounter; Y93.89 Activity, other specified; Y92.009 Unspecified place in unspecified non-institutional (private) residence as the place of occurrence of the external cause
CPT/HCPCS: 71101; 72072; 99283; 99284

== ENCOUNTER 2018-05-14 11:17 | Outpatient (CLI) | payer MEDICARE, OTHER | END 2018-05-14 11:19 | LOC: LAB 11:17 | PROVIDERS: ATTEND Internal Medicine Cardiovascular Disease | DX: Z79.01 Long term (current) use of anticoagulants (principal) | CPT/HCPCS: 36415; 85610 ==

== ENCOUNTER 2018-05-21 11:03 | Outpatient (CLI) | payer MEDICARE, OTHER | END 2018-05-21 11:05 | LOC: LAB 11:03 | PROVIDERS: ATTEND Internal Medicine Cardiovascular Disease | DX: Z79.01 Long term (current) use of anticoagulants (principal) | CPT/HCPCS: 36415; 85610 ==

== ENCOUNTER 2018-05-26 10:59 | Outpatient (CLI) | payer MEDICARE, OTHER | END 2018-05-26 11:00 | LOC: LAB 10:59 | PROVIDERS: ATTEND Internal Medicine Cardiovascular Disease | DX: Z79.01 Long term (current) use of anticoagulants (principal) | CPT/HCPCS: 36415; 85610 ==

== ENCOUNTER 2018-05-29 11:15 | Outpatient (CLI) | payer MEDICARE, OTHER | END 2018-05-29 11:16 | LOC: LAB 11:15 | PROVIDERS: ATTEND Internal Medicine Cardiovascular Disease | DX: Z79.01 Long term (current) use of anticoagulants (principal) | CPT/HCPCS: 36415; 85610 ==

== ENCOUNTER 2018-06-12 11:10 | Outpatient (CLI) | payer MEDICARE, OTHER | END 2018-06-12 11:13 | LOC: LAB 11:10 | PROVIDERS: ATTEND Internal Medicine Cardiovascular Disease | DX: Z79.01 Long term (current) use of anticoagulants (principal) | CPT/HCPCS: 36415; 85610 ==

== ENCOUNTER 2018-06-19 11:40 | Outpatient (CLI) | payer MEDICARE, OTHER | END 2018-06-19 13:07 | LOC: LAB 11:40 | PROVIDERS: ATTEND Internal Medicine Cardiovascular Disease | DX: Z79.01 Long term (current) use of anticoagulants (principal) | CPT/HCPCS: 36415; 85610 ==

== ENCOUNTER 2018-07-03 11:05 | Outpatient (CLI) | payer MEDICARE, OTHER | END 2018-07-03 11:07 | LOC: LAB 11:05 | PROVIDERS: ATTEND Internal Medicine Cardiovascular Disease | DX: Z79.01 Long term (current) use of anticoagulants (principal) | CPT/HCPCS: 36415; 85610 ==

== ENCOUNTER 2018-07-24 10:36 | Outpatient (CLI) | payer MEDICARE, OTHER | END 2018-07-24 10:38 | LOC: LAB 10:36 | PROVIDERS: ATTEND Internal Medicine Cardiovascular Disease | DX: Z79.01 Long term (current) use of anticoagulants (principal) | CPT/HCPCS: 36415; 85610 ==

== ENCOUNTER 2018-08-22 15:25 | Outpatient (CLI) | payer MEDICARE, OTHER | END 2018-08-22 15:30 | disposition home or self-care (01) | LOC: LAB 15:25 | PROVIDERS: ATTEND Dermatology | DX: Z79.899 Other long term (current) drug therapy (principal) | CPT/HCPCS: 36415 ==

== ENCOUNTER 2018-09-04 10:37 | Outpatient (CLI) | payer MEDICARE, OTHER | END 2018-09-04 10:40 | LOC: LAB 10:37 | PROVIDERS: ATTEND Internal Medicine Cardiovascular Disease | DX: Z79.01 Long term (current) use of anticoagulants (principal); Z51.81 Encounter for therapeutic drug level monitoring | CPT/HCPCS: 36415; 85610 ==

== ENCOUNTER 2018-09-09 09:41 | Outpatient (CLI) | payer MEDICARE, OTHER | END 2018-09-09 09:43 | LOC: LAB 09:41 | PROVIDERS: ATTEND Internal Medicine Cardiovascular Disease | DX: Z79.01 Long term (current) use of anticoagulants (principal); Z51.81 Encounter for therapeutic drug level monitoring | CPT/HCPCS: 36415; 85610 ==

== ENCOUNTER 2018-09-23 10:29 | Outpatient (CLI) | payer MEDICARE, OTHER | END 2018-09-23 10:32 | LOC: LAB 10:29 | PROVIDERS: ATTEND Internal Medicine Cardiovascular Disease | DX: Z51.81 Encounter for therapeutic drug level monitoring (principal); Z79.01 Long term (current) use of anticoagulants | CPT/HCPCS: 36415; 85610 ==

== ENCOUNTER 2018-10-22 10:59 | Outpatient (CLI) | payer MEDICARE, OTHER | END 2018-10-22 11:02 | LOC: LAB 10:59 | PROVIDERS: ATTEND Internal Medicine Cardiovascular Disease | DX: Z79.01 Long term (current) use of anticoagulants (principal); Z51.81 Encounter for therapeutic drug level monitoring | CPT/HCPCS: 36415; 85610 ==

== ENCOUNTER 2018-10-31 10:11 | Outpatient (CLI) | payer MEDICARE, OTHER | END 2018-10-31 10:14 | LOC: LAB 10:11 | PROVIDERS: ATTEND Internal Medicine Cardiovascular Disease | DX: Z51.81 Encounter for therapeutic drug level monitoring (principal); Z79.01 Long term (current) use of anticoagulants | CPT/HCPCS: 36415; 85610 ==

== ENCOUNTER 2018-11-11 10:32 | Outpatient (CLI) | payer MEDICARE, OTHER | END 2018-11-11 10:34 | LOC: LAB 10:32 | PROVIDERS: ATTEND Internal Medicine Cardiovascular Disease | DX: Z79.01 Long term (current) use of anticoagulants (principal); Z51.81 Encounter for therapeutic drug level monitoring | CPT/HCPCS: 36415; 85610 ==

== ENCOUNTER 2018-11-19 11:59 | Outpatient (CLI) | payer MEDICARE, OTHER | END 2018-11-19 12:03 | LOC: LAB 11:59 | PROVIDERS: ATTEND Internal Medicine Cardiovascular Disease | DX: Z51.81 Encounter for therapeutic drug level monitoring (principal); Z79.01 Long term (current) use of anticoagulants | CPT/HCPCS: 36415; 85610 ==

== ENCOUNTER 2018-12-04 10:36 | Outpatient (CLI) | payer MEDICARE, OTHER | END 2018-12-04 10:38 | LOC: LAB 10:36 | PROVIDERS: ATTEND Internal Medicine Cardiovascular Disease | DX: Z79.01 Long term (current) use of anticoagulants (principal); Z51.81 Encounter for therapeutic drug level monitoring | CPT/HCPCS: 36415; 85610 ==

== ENCOUNTER 2019-01-01 11:54 | Outpatient (CLI) | payer MEDICARE, OTHER | END 2019-01-01 11:59 | LOC: LAB 11:54 | PROVIDERS: ATTEND Internal Medicine Cardiovascular Disease | DX: Z51.81 Encounter for therapeutic drug level monitoring (principal); Z79.01 Long term (current) use of anticoagulants | CPT/HCPCS: 36415; 85610 ==

== ENCOUNTER 2019-01-29 11:36 | Outpatient (CLI) | payer MEDICARE, OTHER | END 2019-01-29 11:41 | LOC: LAB 11:36 | PROVIDERS: ATTEND Internal Medicine Cardiovascular Disease | DX: Z51.81 Encounter for therapeutic drug level monitoring (principal); Z79.01 Long term (current) use of anticoagulants | CPT/HCPCS: 36415; 85610 ==

== ENCOUNTER 2019-02-24 11:18 | Outpatient (CLI) | payer MEDICARE, OTHER | END 2019-02-24 11:23 | LOC: LAB 11:18 | PROVIDERS: ATTEND Internal Medicine Cardiovascular Disease | DX: Z51.81 Encounter for therapeutic drug level monitoring (principal); Z79.01 Long term (current) use of anticoagulants | CPT/HCPCS: 36415; 85610 ==